=== PATIENT | female | born 1970 | race Two or more races ===

== ENCOUNTER → 2019-09-19 | Emergency (ER) | payer SELFPAY ==
[~2019-09-19] VITALS: Ht 154.9 cm; Wt 78.5 kg
[2019-09-19 16:34] VITALS: BP 103/62
== END | disposition home or self-care (01) ==
LOC: ER 16:11
DX: R50.9 Fever, unspecified (principal); Z20.828 Contact with and (suspected) exposure to other viral communicable diseases